=== PATIENT | female | born 1965 | race Caucasian/White ===

== ENCOUNTER 2021-08-26 02:15 | Emergency (ER) | payer SELFPAY ==
[~2021-08-26] VITALS: Ht 170.2 cm; Wt 167.8 kg
[2021-08-26] MEDS ORDERED: METFORMIN HCL500 M2 PO (02:32)
[2021-08-26] MEDS ORDERED: MOBIC15 MG PO (02:33)
[2021-08-26] MEDS ORDERED: LEVOTHYROXINE25 MC1 PO (02:33)
[2021-08-26] MEDS ORDERED: NEURONTIN800 MG PO (02:33)
[2021-08-26] MEDS ORDERED: LEXAPRO20 MG PO (02:33)
[2021-08-26] MEDS ORDERED: ELIQUIS5 MG PO (02:33)
[2021-08-26] MEDS ORDERED: ELIQUIS5 M1 PO (11:25)
--- NOTE | 2021-08-28 11:25 | EKG ---
[facility] [address] [place], [place] [address] Signed Normal sinus rhythm Normal ECG No previous ECGs available Confirmed by DEBRA CHRIS MD ([id number]) on 08/28/2021 11:25:32 AM Electronically Signed By: DEBRA CHRIS MD 08/28/21 1125 PATIENT NAME: MELISSA MESSERMISTY Electrocardiogram DATE OF : 67 PHYSICIAN: DEBRA CHRIS MD REPORT #: [id number] REPORT IS CONFIDENTIAL AND NOT TO BE RELEASED WITHOUT AUTHORIZATION
== END 2021-08-26 07:57 | disposition home or self-care (01) ==
LOC: ED 02:15
DX: R07.9 Chest pain, unspecified (principal); R53.1 Weakness; E83.42 Hypomagnesemia; E11.9 Type 2 diabetes mellitus without complications; Z20.822 Contact with and (suspected) exposure to COVID-19; Z86.718 Personal history of other venous thrombosis and embolism; Z79.01 Long term (current) use of anticoagulants; Z86.711 Personal history of pulmonary embolism; Z88.2 Allergy status to sulfonamides; Z88.1 Allergy status to other antibiotic agents; Z88.5 Allergy status to narcotic agent; Z88.8 Allergy status to other drugs, medicaments and biological substances; Z79.890 Hormone replacement therapy; Z79.84 Long term (current) use of oral hypoglycemic drugs; Z79.899 Other long term (current) drug therapy
CPT/HCPCS: 71045; 71260; 71275; 74175; 80053; 83690; 83735; 84484; 85025; 85610; 93005; 93010; 99285-25; J2405; J3010; Q9967; U0003

== ENCOUNTER 2021-08-26 09:03 | Emergency (ER) | payer OTHER ==
[~2021-08-26] VITALS: Ht 170.2 cm; Wt 167.8 kg
[~2021-08-26 09:03] MED LIST: ELIQUIS5 MG PO; LEVOTHYROXINE25 MC1 PO; LEXAPRO20 MG PO; METFORMIN HCL500 M2 PO; MOBIC15 MG PO; NEURONTIN800 MG PO
--- OUTSIDE RECORDS SUMMARY | 2021-08-26 09:08 | XMS ---
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 Dario has no Care Guidelines for this patient. [facility] (12 MO.) [facility] T[facility] NOTE: Visits indicate total known visits. ED/C VISIT TRACKING (12 MO.) [facility] COMPLAINT: - CHEST PAIN 08/26/2021 02:16 [facility] [place] TYPE: Emergency COMPLAINT: - CHEST PAIN INPATIENT VISIT TRACKING (12 MO.) No inpatient visits to display in this time frame [email or web address]
[2021-08-26] MEDS ORDERED: ELIQUIS5 M1 PO (11:25)
--- NOTE | 2021-08-28 11:25 | EKG ---
[facility] [address] [place], [place] [address] Signed Normal sinus rhythm Low voltage QRS Cannot rule out Anterior infarct , age undetermined Abnormal ECG When compared with ECG of 26-AUG-2021 02:21, (Unconfirmed) Minimal criteria for Anterior infarct are now present Confirmed by DEBRA CHRIS MD ([id number]) on 08/28/2021 11:25:40 AM Electronically Signed By: DEBRA CHRIS MD 08/28/21 1125 PATIENT NAME: MISTY BEARDEN Electrocardiogram DATE OF : 67 PHYSICIAN: DEBRA CHRIS MD REPORT #: [id number] REPORT IS CONFIDENTIAL AND NOT TO BE RELEASED WITHOUT AUTHORIZATION
== END 2021-08-26 12:42 | disposition home or self-care (01) ==
LOC: ED 09:03
DX: R07.89 Other chest pain (principal); E11.9 Type 2 diabetes mellitus without complications; Z86.711 Personal history of pulmonary embolism; Z86.718 Personal history of other venous thrombosis and embolism; Z88.2 Allergy status to sulfonamides; Z88.1 Allergy status to other antibiotic agents; Z88.5 Allergy status to narcotic agent; Z79.01 Long term (current) use of anticoagulants; Z79.84 Long term (current) use of oral hypoglycemic drugs
CPT/HCPCS: 93005; 93010; 99284-25